=== PATIENT | male | born 1980 | race Caucasian/White ===

== ENCOUNTER 2017-07-30 01:48 | Emergency (ER) | payer OTHER ==
[~2017-07-30] VITALS: Ht 172.7 cm; Wt 59.1 kg
[2017-07-30 04:04] VITALS: BP 124/80
== END 2017-07-30 04:04 | disposition home or self-care (01) ==
LOC: ED 01:48
DX: R00.2 Palpitations (principal); F41.9 Anxiety disorder, unspecified

== ENCOUNTER → 2017-12-06 | Outpatient (CLI) | payer OTHER ==
[2017-12-06 10:01] LABS: EOS # 0.1 (0.04-0.40); EOS % 1.7 % (0.0-4.0); HEMATOCRIT 46.6 % (42.0-52.0); HEMOGLOBIN 15.9 g/dL (13.5-18.0); LYMPH# 1.4 (1.50-4.00); MEAN CELL VOLUME 85 fl (78-100); MEAN CORPUSCULAR HEMOGLOBIN 29 pg (27-31); MEAN CORPUSCULAR HGB CONC 34 g/dL (33-37); MEAN PLATELET VOLUME 10.6 fl (7.4-10.4); MONO # 0.5 (0.20-0.80); NEU # 3.2 (1.40-6.50); PLATELET COUNT 211 K/mm3 (130-400); RED BLOOD COUNT 5.46 M/mm3 (4.20-5.60); RED CELL DISTRIBUTION WIDTH 12.6 % (11.5-14.5); WHITE BLOOD COUNT 5.2 K/mm3 (4.8-10.8)
[2017-12-06 10:16] LABS: ALBUMIN 4.5 g/dL (3.5-5.0); BUN/CREATININE RATIO 15.6 (6.0-26.0); CALCIUM 9.8 mg/dL (8.4-10.2); POTASSIUM 3.9 mmol/L (3.6-5.0); TOTAL BILIRUBIN 1.5 mg/dL (0.2-1.3); TOTAL PROTEIN 7.8 g/dL (6.3-8.2)
== END ==
LOC: LAB 09:41
PROVIDERS: Nurse Practitioner Family
DX: G47.9 Sleep disorder, unspecified (principal); E87.6 Hypokalemia